=== PATIENT | male | born 1990 | race Caucasian/White ===

== ENCOUNTER 2017-07-13 17:58 | Emergency (ER) | payer OTHER ==
[2017-07-13] MEDS ORDERED: diphenhydrAMINE INJ 50 MG/ML VIAL IVP STA (19:53)
[2017-07-13] MEDS ORDERED: METOCLOPRAMIDE 10 MG/2 ML VIAL IVP STA (19:53)
[2017-07-13] MEDS ORDERED: SODIUM CHLORIDE 0.9% 1,000 ML IV ONE (19:53)
[2017-07-13] MEDS ORDERED: KETOROLAC 30 MG/ML VIAL IVP STA (19:53)
--- NOTE | 2017-07-13 19:55 | ED Physician Documentation ---
PD HPI HEADACHE - Stated complaint Stated Complaint: MIGRAINE - Chief complaint Chief Complaint: Neuro - History obtained from History obtained from: Patient, Family - History of Present Illness Timing - onset: Today (He has migraines about every other month or so. He developed a gradual onset pain behind the right eye today similar to prior migraines that then moved behind the left eye. It was associated with nausea but no vomiting. He took ibuprofen at home which was not helpful. The pain also radiates to the left ear. No fevers. He is light sensitive and mildly sound sensitive. No neck stiffness.) Review of Systems Constitutional: denies: Fever, Chills Nose: denies: Rhinorrhea / runny nose Respiratory: denies: Dyspnea, Cough GI: reports: Nausea. denies: Abdominal Pain, Vomiting PD PAST MEDICAL HISTORY - Past Medical History Past Medical History: Yes Neuro: Headache/migraine - Past Surgical History Past Surgical History: No - Present Medications Home Medications: Ambulatory Orders Medication Instructions Recorded Confirmed SUMAtriptan [Imitrex] 25 mg PO BID PRN #10 tablet 07/13/17 - Allergies Allergies/Adverse Reactions: Allergies Allergy/AdvReac Type Severity Reaction Status Date / Time Penicillins Allergy Rash Verified 07/13/17 18:07 - Social History Does the pt smoke?: No Smoking Status: Never smoker Does the pt drink ETOH?: Yes Does the pt have substance abuse?: No PD ED PE NORMAL - Vitals Vital signs reviewed: Yes - General General: Alert and oriented X 3, Other (Photophobic and uncomfortable but not overtly in pain.) - HEENT HEENT: PERRL, EOMI, Pharynx benign - Neck Neck: Supple, no meningeal sign, No bony TTP - Cardiac Cardiac: RRR, No murmur - Respiratory Respiratory: No respiratory distress, Clear bilaterally - Abdomen Abdomen: Non tender - Neuro Neuro: Alert and oriented X 3, e learning designer 2-12 intact Eye Opening: Spontaneous Motor: Obeys Commands Verbal: Oriented GCS Score: 15 - Psych Psych: Normal mood, Normal affect Results - Vitals Vitals: Vital Signs - 24 hr 07/13/17 07/13/17 18:04 21:06 Temperature 36.1 C L 36.4 C L Heart Rate 54 L 51 L Respiratory 16 12 Rate Blood Pressure 132/83 H 122/72 O2 Saturation 99 97 Oxygen O2 Source Room air PD MEDICAL DECISION MAKING - ED course ED course: The headache is gradual in onset and similar to prior headaches. As such I doubt subarachnoid hemorrhage. There are no infectious symptoms such as fever or stiff neck to make me suspect meningitis. No carbon monoxide exposure by history. He was administered IV fluids, Reglan, Benadryl, and Toradol with complete relief of his headache. Departure - Departure Disposition: 01 Home, Self Care Clinical Impression: Migraine Qualifiers: Migraine type: with aura Status migrainosus presence: with status migrainosus Intractability: not intractable Qualified Code(s): G43.101 - Migraine with aura , not intractable, with status migrainosus Condition: Good Record reviewed to determine appropriate education?: Yes Instructions: ED Headache Migraine Prescriptions: SUMAtriptan [Imitrex] 25 mg PO BID PRN #10 tablet PRN Reason: Headache Comments: Call your doctor to arrange a follow-up appointment, make the next available appointment. In the interim, return anytime if worse or if new symptoms develop. Discharge Date/Time: 07/13/17 21:05
[2017-07-13 21:06] VITALS: BP 122/72
== END 2017-07-13 21:05 | disposition home or self-care (01) ==
LOC: ED 17:58
DX: G43.101 Migraine with aura, not intractable, with status migrainosus (principal)
CPT/HCPCS: 96374; 96375; 99284; J1200; J2765

== ENCOUNTER 2020-02-13 07:06 | Outpatient (CLI) | payer OTHER ==
[2020-02-13] MEDS ORDERED: IOVERSOL 320 50 ML VIAL ONE (07:17)
[2020-02-13] MEDS ORDERED: IOVERSOL 320 100 ML VIAL IVP ONE ×2 (07:17→16:17)
[2020-02-13 07:43] LABS: ALBUMIN 4.4 g/dL (3.2-5.5); ALBUMIN/GLOBULIN RATIO 1.4 (1.0-2.2); BILIRUBIN,TOTAL 0.9 mg/dL (0.2-1.0); CALCIUM 9.4 mg/dL (8.5-10.3); TOTAL PROTEIN 7.6 g/dL (6.7-8.2)
--- NOTE | 2020-02-13 08:43 | CT Report ---
PROCEDURE: Abdomen/Pelvis W INDICATIONS: RT UPPER QUAD ABDOMEN CONTRAST: IV CONTRAST: Optiray 320 ml: 100 PO CONTRAST: Optiray 320 ml50 TECHNIQUE: After the administration of intravenous contrast, 5 mm thick sections acquired from the diaphragms to the symphysis. 5 mm thick coronal and sagittal reformats were acquired. For radiation dose reducti on, the following was used: automated exposure control, adjustment of mA and/or kV according to lupillo ent size. COMPARISON: None. FINDINGS: Image quality: Excellent. ABDOMEN: Lung bases: Lung bases are clear. Heart size is normal. Solid organs: Mild hepatic steatosis. Liver is otherwise unremarkable. Normal size and appearance of the spleen. Normally distended gallbladder without wall thickening or adjacent inflammatory change. No intrahepatic or extrahepatic biliary duct dilatation. Pancreas enhances normally. No adrenal nodu le. No hydroureteronephrosis, urinary tract calculus, or other significant renal abnormality. Peritoneum and bowel: Bowel loops demonstrate normal wall thickness and caliber. No free fluid or a ir. Nodes and vessels: No retroperitoneal or mesenteric adenopathy by size criteria. Aorta and inferior vena cava are normal in size. Miscellaneous: No ventral hernias. PELVIS: Genitourinary: Bladder wall thickness is normal. Miscellaneous: No inguinal hernias or adenopathy. Bones: No suspicious bony lesions. No vertebral body compression fractures. IMPRESSION: Mild hepatic steatosis. Otherwise normal exam. Reviewed by: Isaiah Galindo MD on 02/13/2020 8:42 AM PST Approved by: Isaiah Galindo MD on 02/13/2020 8:42 AM PST Station ID: [id number]
[2020-02-13] MEDS ORDERED: IOVERSOL 320 50 ML VIAL PO ONE (16:18)
== END 2020-02-13 07:07 | disposition home or self-care (01) ==
LOC: DI 07:06
PROVIDERS: ATTEND Nurse Practitioner Family
DX: R10.11 Right upper quadrant pain (principal); K76.0 Fatty (change of) liver, not elsewhere classified
CPT/HCPCS: 36415; 74177; 80053; 82150; 83690; Q9967

== ENCOUNTER 2020-04-07 11:04 | Outpatient (CLI) | payer OTHER ==
--- NOTE | 2020-04-07 13:17 | XRAY Report ---
PROCEDURE: Shoulder 3 View BILAT INDICATIONS: PLUERODYNIA, SHLDR PAIN TECHNIQUE: 3 views of the shoulder were acquired. COMPARISON: None. FINDINGS: Bones: No fractures or dislocations. No suspicious bony lesions. Visualized ribs appear intact. Soft tissues: No suspicious soft tissue calcifications. IMPRESSION: Normal shoulder x-ray bilaterally. If clinical symptoms persist, repeat exam in 7-10 day s or advanced imaging such as CT or MRI is suggested. Reviewed by: Lola Pierson MD on 04/07/2020 1:16 PM PST Approved by: Lola Pierson MD on 04/07/2020 1:16 PM [facility] Station ID: [id number]
--- NOTE | 2020-04-07 13:23 | XRAY Report ---
PROCEDURE: Ribs w/PA Chest LT INDICATIONS: PLEURODYNIA TECHNIQUE: 4 views of the left ribs were acquired, along with a single view chest. COMPARISON: FINDINGS: Surgical changes and devices: None. Bones and chest wall: No fractures or dislocations. No suspicious bony lesions. Overlying soft tis sues appear unremarkable. Lungs and pleura: No pleural effusions or pneumothorax. Lungs appear clear. Mediastinum: Mediastinal contours appear normal. Heart size is normal. IMPRESSION: No displaced rib fractures. Reviewed by: Lola Pierson MD on 04/07/2020 1:22 PM PST Approved by: Lola Pierson MD on 04/07/2020 1:22 PM PST Station ID: [id number]
== END 2020-04-07 11:05 | disposition home or self-care (01) ==
LOC: DI 11:04
PROVIDERS: ATTEND Nurse Practitioner Family
DX: M25.512 Pain in left shoulder (principal); M25.511 Pain in right shoulder; R07.81 Pleurodynia

== ENCOUNTER 2020-04-12 21:26 | Emergency (ER) | payer OTHER ==
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
[2020-04-12 22:26] LABS: BASOPHILS % (AUTO) 0.2 %; EOSINOPHILS # (AUTO) 0.3 10^3/uL (0.0-0.7); EOSINOPHILS % (AUTO) 3.3 %; HGB - HEMOGLOBIN 14.1 g/dL (14.0-18.0); LYMPHOCYTES % (AUTO) 36.6 %; MEAN CORPUSCULAR HEMOGLOBIN 31.2 pg (27.0-31.0); MEAN CORPUSCULAR HGB CONC 33.4 g/dL (32.0-36.0); MEAN CORPUSCULAR VOLUME 93.4 fL (80.0-94.0); MEAN PLATELET VOLUME 10.1 fL (7.4-11.4); MONOCYTES # (AUTO) 0.7 10^3/uL (0.0-1.0); MONOCYTES % (AUTO) 8.8 %; NEUTROPHILS # (AUTO) 4.1 10^3/uL (1.5-6.6); NEUTROPHILS % (AUTO) 50.7 %; PLT - PLATELET COUNT 229 10^3/uL (130-450); RED BLOOD COUNT 4.52 10^6/uL (4.70-6.10); RED CELL DISTRIBUTION WIDTH 12.4 % (12.0-15.0); WHITE BLOOD COUNT 8.1 x10^3/uL (4.8-10.8)
[2020-04-12 22:40] LABS: ALBUMIN 4.3 g/dL (3.2-5.5); ALBUMIN/GLOBULIN RATIO 1.4 (1.0-2.2); BILIRUBIN,TOTAL 0.5 mg/dL (0.2-1.0); CALCIUM 9.6 mg/dL (8.5-10.3); CREATININE 1.1 mg/dL (0.6-1.2); TOTAL PROTEIN 7.4 g/dL (6.7-8.2)
[2020-04-13 00:15] VITALS: BP 102/61
--- NOTE | 2020-04-13 08:21 | CT Report ---
PROCEDURE: HEAD WO INDICATIONS: injury, dizziness TECHNIQUE: Noncontrast 4.5 mm thick angled axial sections acquired from the foramen magnum to the vertex. For r adiation dose reduction, the following was used: automated exposure control, adjustment of mA and/or kV according to patient size. COMPARISON: None. FINDINGS: Image quality: Excellent. CSF spaces: Basal cisterns are patent. No extra-axial fluid collections. Ventricles are normal in size and shape. Brain: No midline shift. No intracranial masses or hemorrhage. Baires-white matter interface is norm al. Skull and face: Calvarium and visualized facial bones are intact, without suspicious lesions. Sinuses: Visualized sinuses and mastoids are clear. IMPRESSION: No trauma found. Reviewed by: Manuel Boo MD on 04/13/2020 8:19 AM [facility] Approved by: Manuel Boo MD on 04/13/2020 8:19 AM [facility] Station ID: [id number]
== END 2020-04-13 00:15 | disposition home or self-care (01) ==
LOC: ED 21:26
DX: R42 Dizziness and giddiness (principal); S09.90XA Unspecified injury of head, initial encounter; S43.402A Unspecified sprain of left shoulder joint, initial encounter; V00.328A Other snow-ski accident, initial encounter; Y93.23 Activity, snow (alpine) (downhill) skiing, snowboarding, sledding, tobogganing and snow tubing; Y92.838 Other recreation area as the place of occurrence of the external cause
CPT/HCPCS: 36415; 70450; 80053; 85025; 99284; 99285

== ENCOUNTER 2020-04-16 17:36 | Outpatient (CLI) | payer OTHER ==
--- NOTE | 2020-04-16 18:06 | CT Report ---
PROCEDURE: CERVICAL SPINE WO INDICATIONS: Cervalgia TECHNIQUE: Noncontrast 3 mm thick sections acquired from the skull base to the T4 level. Sagittal and coronal r eformats were then constructed. For radiation dose reduction, the following was used: automated exp osure control, adjustment of mA and/or kV according to patient size. COMPARISON: None. FINDINGS: Image quality: Excellent. Bones: No acute fractures or dislocations. There is a chronic ununited fracture of the spinous proc ess of T1. Visualized superior ribs are intact. Soft tissues: Prevertebral soft tissues are normal in thickness. No paravertebral hematomas. No ap ical pneumothoraces. IMPRESSION: No acute fracture. Chronic ununited T1 spinous process fracture. Reviewed by: Traci Gallegos MD on 04/16/2020 6:04 PM PST Approved by: Traci Gallegos MD on 04/16/2020 6:04 PM PST Station ID: [id number]
== END 2020-04-16 17:37 | disposition home or self-care (01) ==
LOC: DI 17:36
PROVIDERS: ATTEND Nurse Practitioner Family
DX: M54.2 Cervicalgia (principal); M84.48XA Pathological fracture, other site, initial encounter for fracture
CPT/HCPCS: 72125

== ENCOUNTER 2020-04-21 07:01 | Outpatient (CLI) | payer OTHER ==
--- NOTE | 2020-04-21 11:24 | MRI Report ---
PROCEDURE: Shoulder LT W/O INDICATIONS: BILAT SHLDR PAIN TECHNIQUE: Noncontrast oblique coronal T2 fast spin echo with fat saturation, oblique sagittal T1 spin echo and T2 fast spin echo with fat saturation, axial T1 spin echo and T2 fast spin echo with fat saturation t hrough the shoulder. COMPARISON: None FINDINGS: Image quality: Motion degraded. Rotator cuff: Mild infraspinatus tendinopathy and thickening. Supraspinatus, subscapularis and teres minor tendons appear intact. No atrophy of muscles. Minimal fatty infiltration of the infraspinatus. Bones and bursae: No bone marrow contusions or fractures. Mild acromioclavicular joint degeneration. The acromion demonstrates conventional anatomy, without an os acromiale. Mild subacromial/subdeltoid bursal fluid is present. Capsule and soft tissues: Labrum: The superior labrum appears intact. Posterior labral tear with adjacent para labral cyst deep uring 8mm. There is also anterior labral tear seen on image 11/501. Adjacent chondral loss, spurring and sclerosis. There is also ill-defined tear of the inferior labral segment, which is poorly visual ized secondary to signal dropout. Associated 2 mm para labral cyst. Subchondral cystic changes in the adjacent glenoid. The long head of the biceps tendon demonstrates normal location and morphology. The rotator interval appears normal, without fibrosis. The coracohumeral ligament is normal in thickness. IMPRESSION: Minimal infraspinatus tendinopathy Mild subacromial-subdeltoid bursitis Posterior labral tear with adjacent paralabral cyst measuring 4 mm. Additionally, chronic anterior labral tear is also noted with adjacent chondral loss, and degenerativ e changes of the glenoid. Tear of the inferior labral segment, with adjacent small paralabral cyst measuring 2 mm. Adjacent sub chondral cystic change and spurring of the glenoid. Reviewed by: Denis Penny MD on 04/21/2020 11:22 AM PST Approved by: Denis Penny MD on 04/21/2020 11:22 AM PST Station ID: [id number]
== END 2020-04-21 07:02 | disposition home or self-care (01) ==
LOC: DI 07:01
PROVIDERS: ATTEND Nurse Practitioner Family
DX: M75.52 Bursitis of left shoulder (principal); S43.492A Other sprain of left shoulder joint, initial encounter; M25.812 Other specified joint disorders, left shoulder; M54.2 Cervicalgia; R07.81 Pleurodynia

== ENCOUNTER 2020-04-25 14:43 | Outpatient (CLI) | payer OTHER ==
--- NOTE | 2020-04-27 08:15 | MRI Report ---
PROCEDURE: Thoracic Spine W/O INDICATIONS: MID BACK PAIN TECHNIQUE: Noncontrast sagittal T1 spine echo and T2 fast spin echo, sagittal STIR, axial T1 and T2 fast spin ec ho through the thoracic spine. COMPARISON: None. FINDINGS: Image quality: Excellent. Alignment and Curvature: There is normal bony alignment. Bone Marrow: Marrow is of normal overall signal. No acute vertebral body compression fractures. Spinal Cord: Visualized spinal cord is normal in size and signal. There is mild degenerative disc d isease at the T2-T3 level of the upper thoracic spine, producing disc height reduction and mild disc desiccation and anterior mild osteophyte formation but without spinal or foraminal stenosis associate d. Paraspinous Soft Tissues: No paravertebral masses. Miscellaneous: On axial images, central canal and foramina appear widely patent at all scanned level s. IMPRESSION: No trauma found. Mild degenerative disc disease T2-T3 with no visualized associated spin al or foraminal stenosis. There is no evidence of inflammatory change that would indicate likelihood of discitis or osteomyelitis. The paravertebral and prevertebral soft tissues appear normal for age. Reviewed by: Manuel Boo MD on 04/27/2020 8:13 AM PST Approved by: Manuel Boo MD on 04/27/2020 8:13 AM PST Station ID: [id number]
--- NOTE | 2020-04-27 08:17 | MRI Report ---
PROCEDURE: Cervical Spine W/O INDICATIONS: NECK PAIN TECHNIQUE: Noncontrast sagittal T1 spin echo and T2 fast spin echo, sagittal STIR, foraminal oblique sagittal T2 fast spin echo, and axial gradient echo or T2 fast spin echo through the cervical spine. COMPARISON: None. FINDINGS: Image quality: Excellent. Alignment and Curvature: There is normal bony alignment. Bone Marrow: Marrow demonstrates normal overall signal. Spinal Cord: Visualized spinal cord has normal size and signal. No cerebellar tonsillar herniation. Paraspinous Soft Tissues: No paravertebral masses. Prevertebral soft tissues are normal in thicknes s. C2-C3: Normal in appearance. C3-C4: Normal in appearance. C4-C5: Normal in appearance. C5-C6: Normal in appearance. C6-C7: Normal in appearance. C7-T1: Normal in appearance. IMPRESSION: Normal examination, no sign of intrinsic lesion within the cervical cord, and alignment and marrow si gnal along the cervical spine is normal. No trauma found, no inflammatory change suggestive of osteom yelitis or discitis is seen. Reviewed by: Manuel Boo MD on 04/27/2020 8:16 AM PST Approved by: Manuel Boo MD on 04/27/2020 8:16 AM PST Station ID: [id number]
== END 2020-04-25 14:44 | disposition home or self-care (01) ==
LOC: DI 14:43
PROVIDERS: ATTEND Nurse Practitioner Family
DX: M25.519 Pain in unspecified shoulder (principal); M54.2 Cervicalgia; R07.81 Pleurodynia; M51.34 Other intervertebral disc degeneration, thoracic region
CPT/HCPCS: 72141; 72146

== ENCOUNTER 2020-05-05 13:48 | Outpatient (CLI) | payer OTHER ==
--- NOTE | 2020-05-05 15:30 | MRI Report ---
PROCEDURE: Shoulder RT W/O INDICATIONS: RIGHT SHOULDER PAIN TECHNIQUE: Noncontrast oblique coronal T2 fast spin echo with fat saturation, oblique sagittal T1 spin echo and T2 fast spin echo with fat saturation, axial T1 spin echo and T2 fast spin echo with fat saturation t hrough the shoulder. COMPARISON: None. FINDINGS: Image quality: Excellent. Rotator cuff: The supraspinatus, infraspinatus, and subscapularis tendons appear intact throughout. No rotator cuff muscle atrophy on sagittal images. Bones and bursae: No bone marrow contusions or fractures. No acromioclavicular joint degeneration. The acromion demonstrates conventional anatomy, without an os acromiale. No pathologic subacromial/ subdeltoid bursal fluid is present. Capsule and soft tissues: Linear high T2 signal intensity traverses the anteroinferior, inferior, and posterior labrum. The long head of the biceps tendon demonstrates normal location and morphology. T he rotator interval appears normal, without fibrosis. The coracohumeral ligament is normal in thickn ess. IMPRESSION: 1. Labral tearing. 2. No rotator cuff tear. Reviewed by: Traci Gallegos MD on 05/05/2020 3:29 PM PST Approved by: Traci Gallegos MD on 05/05/2020 3:29 PM PST Station ID: [id number]
== END 2020-05-05 13:49 | disposition home or self-care (01) ==
LOC: DI 13:48
PROVIDERS: ATTEND Nurse Practitioner Family
DX: S43.491A Other sprain of right shoulder joint, initial encounter (principal)